=== PATIENT | female | born 1985 | race Two or more races ===

== ENCOUNTER 2020-04-02 12:07 | Outpatient (CLI) | payer OTHER | END 2020-04-02 15:33 | disposition home or self-care (01) | LOC: SONOGRAMA 12:07 | DX: N84.0 Polyp of corpus uteri (principal) ==

== ENCOUNTER 2021-03-12 11:09 | Outpatient (CLI) | payer OTHER | END 2021-03-12 13:53 | disposition home or self-care (01) | LOC: OFIC 805 11:09 | PROVIDERS: ATTEND Otolaryngology | DX: H90.3 Sensorineural hearing loss, bilateral (principal); H61.23 Impacted cerumen, bilateral ==

== ENCOUNTER 2024-10-29 07:15 | Inpatient (IN) | payer OTHER ==
[~2024-10-29] VITALS: Ht 165.1 cm; Wt 56.7 kg
[2024-10-29 08:55] LABS: HEMATOCRIT 39.7 % (36.0-45.00); HEMOGLOBIN 13.8 g/dL (12.0-15.00); MEAN CELL VOLUME 92.5 fL (80.00-100.00); MEAN CORPUSCULAR HEMOGLOBIN 32.2 pg (27.00-32.0); MEAN CORPUSCULAR HGB CONC 34.8 g/dl (32.0-36.0); PLATELET COUNT 215 K/uL (150-450); RED BLOOD COUNT 4.29 M/uL (4.00-6.00)
[2024-10-29 08:56] LABS: URINE APPEARANCE Clear; URINE BILIRRUBIN Negative (NEGATIVE); URINE BLOOD Moderate; URINE COLOR Yellow; URINE GLUCOSE Negative (NEGATIVE); URINE KETONE Negative (NEGATIVE); URINE LEUKOCYTE Negative; URINE NITRATE Negative; URINE PROTEIN Negative (NEGATIVE); URINE UROBILINOGEN 0.2 E.U./dl
[2024-10-29 09:00] LABS: URINE BACTERIA 107.5 uL (0.0-1933); URINE RBC 15.6 uL (0.0-20.8)
[2024-10-29 09:24] LABS: INR < 0.93; PARTIAL THROMBOPLASTIN TIME 26.1 SECONDS (22.0-34.0); PROTHROMBIN TIME 10.2 SECONDS (9.0-11.5)
[2024-10-29 09:27] LABS: URINE WBC 0.4 uL (0.0-23.2)
[2024-10-29 09:58] LABS: ALBUMIN 3.9 gm/dL (3.4-5.0); BILIRUBIN TOTAL 0.43 mg/dL (0.3-1.2); CALCIUM 9.1 mg/dL (8.5-10.1); CREATININE SERUM 0.73 mg/dL (0.55-1.02); GFR 90.21; GLOBULINA 3.6 G/DL (2.4-3.5); POTASSIUM 4.19 mEq/L (3.5-5.1); TOTAL PROTEIN 7.5 gm/dL (6.4-8.2)
[2024-10-29 10:08] VITALS: BP 111/75
[2024-10-29 10:11] VITALS: BP 116/80
[2024-10-29 10:42] LABS: RH POSITIVE
[2024-11-13] MEDS ORDERED: CEFAZOLIN SODIUM 1,000 MG VIAL ONE ×2 (06:27→08:00)
[2024-11-13] MEDS ORDERED: VASOPRESSIN 20 UNITS/ML VIAL IV NR (07:00)
[2024-11-13] MEDS ORDERED: CELECOXIB 200 MG CAPSULE PO NR (07:00)
[2024-11-13] MEDS ORDERED: ACETAMINOPHEN 325 MG TABLET PO ONE (07:00)
[2024-11-13] MEDS ORDERED: TRANEXAMIC ACID 100MG/1ML (1000MG) AMPUL IV NR (07:00)
[2024-11-13] MEDS ORDERED: POVIDONE-IODINE 118 ML BOTT TOP ONE (07:11)
[2024-11-13] MEDS ORDERED: CHLORHEXIDINE GLUCONATE 120 ML BOTTLE TOP ONE (07:11)
[2024-11-13] MEDS ORDERED: ACETAMINOPHEN 500 MG GEL..CAP PO NR (07:16)
[2024-11-13] MEDS ORDERED: TRANEXAMIC ACID 100MG/1ML (1000MG) AMPUL IV ONE (07:32)
[2024-11-13] MEDS ORDERED: ACETAMINOPHEN 500 MG GEL..CAP PO ONE (07:32)
[2024-11-13] MEDS ORDERED: CELECOXIB 200 MG CAPSULE PO ONE (07:45)
[2024-11-13] MEDS ORDERED: BUPIVACAINE HCL/MPF 0.5% 30ML VIAL ONE (09:09)
[2024-11-13] MEDS ORDERED: VISTASEAL DUAL APPICATOR 1 EACH APPL TOP ONE (11:43)
[2024-11-13] MEDS ORDERED: THROMBIN,HU/FIBRINOGEN/CALCIUM 10 ML SYRINGE TOP ONE (11:43)
[2024-11-13] MEDS ORDERED: SUGAMMADEX SODIUM 200 MG/2 ML VIAL IV ONE (12:36)
[2024-11-13] MEDS ORDERED: GABAPENTIN 300 MG CAPSULE PO SCH (13:42)
[2024-11-13] MEDS ORDERED: ACETAMINOPHEN 325 MG TABLET PO SCH (13:42)
[2024-11-13] MEDS ORDERED: PROMETHAZINE HCL 25 MG/ML AMPUL IM PRN (14:00)
[2024-11-13] MEDS ORDERED: RINGERS SOLUTION,LACTATED 1,000 ML IV SCH (14:00)
[2024-11-13 16:18] VITALS: BP 111/75
[2024-11-13 17:25] VITALS: O2SAT 100
[2024-11-14] MEDS ORDERED: OxyCODONE HCL/APAP UD (PERCOCET) PO PRN
[2024-11-14 01:12] VITALS: BP 97/67
[2024-11-14 06:10] LABS: HEMATOCRIT 35.6 % (36.0-45.00); HEMOGLOBIN 12.4 g/dL (12.0-15.00); MEAN CORPUSCULAR HEMOGLOBIN 32.1 pg (27.00-32.0); MEAN CORPUSCULAR HGB CONC 34.9 g/dl (32.0-36.0); PLATELET COUNT 166 K/uL (150-450); RED BLOOD COUNT 3.87 M/uL (4.00-6.00); RED CELL DISTRIBUTION WIDTH 12.4 % (11.5-14.5)
[2024-11-14 08:03] VITALS: BP 90/55
[2024-11-14] MEDS ORDERED: ACETAMINOPHEN325 M1 PO (11:12)
== END 2024-11-14 12:08 | disposition home or self-care (01) | DRG 743 ==
LOC: ADM 07:15 → EDSTATUS 07:15 → O/R 11-13 05:25 → OB/GYN 11-13 05:25
PROVIDERS: ADMIT Student in an Organized Health Care Education/Training Program; ATTEND Student in an Organized Health Care Education/Training Program
PROC: 8E0W4CZ Robotic Assisted Procedure of Trunk Region, Percutaneous Endoscopic Approach (ICD-10-PCS; 2024-11-13)
PROC: 0UB94ZZ Excision of Uterus, Percutaneous Endoscopic Approach (ICD-10-PCS; principal; 2024-11-13 07:00)
DX: D25.9 Leiomyoma of uterus, unspecified (principal); N92.0 Excessive and frequent menstruation with regular cycle; N94.5 Secondary dysmenorrhea; R35.0 Frequency of micturition; L40.9 Psoriasis, unspecified; Z98.890 Other specified postprocedural states; Z20.822 Contact with and (suspected) exposure to COVID-19
CPT/HCPCS: 58545; S2900